=== PATIENT | female | born 1955 | race Caucasian/White ===

== ENCOUNTER 2021-04-13 10:15 | Inpatient (IN) | payer OTHER ==
[~2021-04-13] VITALS: Ht 157.5 cm; Wt 69.4 kg
[~2021-04-13 10:15] MED LIST: ATORVASTATIN CA10 MG PO; BONIVA150 MG PO; CALTRATE 600+D1 EAC1 PO; MACROBID 100 M100 MG PO; OSTERA TABLET1 EACH PO; SYNTHROID125 MCG PO; ULTRACET PO
[2021-04-13] MEDS ORDERED: SYNTHROID137 MCG PO (12:29)
== END 2021-04-22 14:45 | DRG 470 ==
LOC: O/R 04-20 05:45 → SURG 04-20 05:45 → SURH 04-20 06:30 → SURG 04-20 11:29
PROVIDERS: ADMIT Orthopaedic Surgery; ATTEND Orthopaedic Surgery
PROC: 0SRC0JZ Replacement of Right Knee Joint with Synthetic Substitute, Open Approach (ICD-10-PCS; principal; 2021-04-20 06:30)
DX: M17.11 Unilateral primary osteoarthritis, right knee (principal); E03.8 Other specified hypothyroidism; Z20.822 Contact with and (suspected) exposure to COVID-19